=== PATIENT | male | born 1940 | race Two or more races ===

== ENCOUNTER 2024-08-14 10:27 | Emergency (ER) | payer OTHER, SELFPAY ==
--- NOTE | 2024-08-14 10:43 | EKG_ITS ---
[facility] Test Date: 2024-08-14 Pat Name: MEGAN VILLAR Department: Room: - Gender: Male Cloth Folder Hand: : 1940 Requested By: Pete Ga (RULING MACHINE SET UP OPERATOR) Order Number: [id number] Reading MD: Pete Ga (RULING MACHINE SET UP OPERATOR) Measurements Intervals [place] Rate: 62 P: 37 [place]: 209 QRS: -59 QRSD: 166 T: -4 QT: 476 QTc: 485 Interpretive Statements SINUS RHYTHM RIGHT BUNDLE BRANCH BLOCK [120+ ms QRS DURATION, UPRIGHT V1, 40+ ms S IN I/aVL/V4/V5/V6] LEFT ANTERIOR FASCICULAR BLOCK [QRS AXIS <= -45, QR IN I, RS IN II] POSSIBLE SEPTAL MYOCARDIAL INFARCTION , PROBABLY OLD [30 ms Q WAVE IN V1/V2] Compared to ECG 11/27/2022 17:02:13 Myocardial infarct finding now present Atrial fibrillation no longer present ST (T wave) deviation no longer present /store/S0/[id number].pdf
[2024-08-14 10:46] VITALS: BP 152/78; PULSE 65; RESP 18; TEMP 36.7; O2SAT 97; BMI 27.1
--- NOTE | 2024-08-14 10:54 | PD.EDRME ---
Rapid Medical Screening Exam RME Arrival date/time: 08/14/24 10:27 84-year-old male presents emerged part today stating his been feeling lightheaded since yesterday Chief Complaint: Dizziness Time Seen by Provider: 08/14/24 10:30 Vital signs: Vital Signs Temperature 98.0 F 08/14/24 10:46 Pulse Rate 65 08/14/24 10:46 Respiratory Rate 18 08/14/24 10:46 Blood Pressure 152/78 H 08/14/24 10:46 Pulse Oximetry (%) 97 08/14/24 10:46 Oxygen Delivery Method Room Air 08/14/24 10:46
--- NOTE | 2024-08-14 10:55 | XR_ITS ---
Examination: CT brain head without contrast. 2-D sagittal coronal reconstructions Date and time of exam:August 14, 2024 1106 hrs. Indications: Onset severe headaches today, patient fell May 09, 2024 with injury to the head, laceration to the right eyebrow head pain CTDI: vol (mGy):52.2 DLP: (mGycm):108 Technique: Multiple CT axial sections of the brain have been obtained, 5 mm slice thickness. Contrast has not been administered. 2-D sagittal, coronal reconstructions have been obtained Low dose protocols were performed. One or more of the following dose reduction techniques were used; automated exposure control, adjustment of the mA and/or KV according to patient size, use of iterative reconstruction technique. Findings: No significant ventricular enlargement. Intra-axial or extra-axial hemorrhage density is not seen. No mass effect or midline shift Basal cisterns are not remarkable. Fourth ventricle is midline. Cranial vault intact. Impression: Negative for acute hemorrhage, mass effect or midline shift Advise clinical correlation and follow-up accordingly
[2024-08-14 11:32] LABS: Basophils % (Auto) 1 % (0-2.5); Eosinophils # (Auto) 0.1 Thou/mm3 (0.0-0.5); Eosinophils % (Auto) 2 % (0-10); Hematocrit 42.1 % (41.0-53.0); Hemoglobin 14.6 g/dL (13.5-16.0); Immature Granulocytes % (Auto) 0 % (0-0); Immature Granulocytes Auto 0.02 Thou/mm3 (0.00-0.00); Lymphocytes # (Auto) 1.1 Thou/mm3 (1.0-4.8); Lymphocytes % (Auto) 18 % (10-50); Mean Corpuscular HGB Conc 34.7 g/dl (31.0-37.0); Mean Corpuscular Hemoglobin 31.5 pg (25.0-35.0); Mean Corpuscular Volume 91 fL (80-100); Monocytes # (Auto) 0.4 Thou/mm3 (0.0-0.8); Monocytes % (Auto) 8 % (0-12); Neutrophils # (Auto) 4.1 Thou/mm3 (1.8-7.7); Neutrophils % (Auto) 71 % (37-80); Nucleated Red Blood Cell % 0 /100 WBC (0); Platelet Count 222 Thou/mm3 (140-440); RDW Standard Deviation 45.9 fL (35.1-43.9); Red Blood Count 4.63 Miln/mm3 (4.50-5.90); White Blood Count 5.8 Thou/mm3 (3.8-10.6)
[2024-08-14 11:47] LABS: INR 1.1 (0.9-1.3); Prothrombin Time 11.9 Seconds (9.0-12.2)
[2024-08-14 11:50] LABS: B-Type Natriuretic Peptide 79 pg/mL (0-100)
[2024-08-14 11:52] LABS: Alanine Aminotransferase 16 U/L (10-49); Albumin, Serum 3.9 gm/dL (3.4-4.8); Albumin/Globulin Ratio 1.3 (1.2-2.2); Alkaline Phosphatase 82 U/L (46-116); Anion Gap 2 (7-16); Aspartate Amino Transferase 23 U/L (0-34); BUN/Creatinine Ratio 9 Ratio (12-20); Bilirubin,Total 0.5 mg/dL (0.3-1.2); Blood Urea Nitrogen 12 mg/dL (9-23); Calcium 8.7 mg/dL (8.3-10.6); Calcium (Corrected) 8.8 mg/dL (8.5-10.1); Carbon Dioxide 26.6 mMol/L (20.0-31.0); Chloride 106 mMol/L (98-107); Creatinine (Component) 1.3 mg/dL (0.6-1.3); Estimated Creatinine Clearance 41.2 mL/min (>60); Globulin 2.9 gm/dL (2.3-3.5); Glucose 111 mg/dL (74-106); Magnesium 1.8 mg/dL (1.6-2.6); Osmolality,Calculated 270 (275-295); Potassium 3.9 mMol/L (3.4-5.1); Sodium 135 mMol/L (136-145); Total Protein 6.8 gm/dL (5.7-8.2); Troponin I < 0.020 ng/mL (0.0-0.045); eGFR 55 See Note
[2024-08-14 14:21] VITALS: BP 161/81; PULSE 68; RESP 19; TEMP 36.5; O2SAT 95
[2024-08-14 15:13] LABS: Collection Type, Urine Clean Catch; Squamous Epithelial Cell,Urine 0 /hpf (0-5)
[2024-08-14 15:31] LABS: Bilirubin,Urine Negative (Negative); Blood,Urine Negative (Negative); Clarity,Urine Clear (Clear/Hazy); Color,Urine Lt-Yellow (Lt Yel-Yel); Glucose, Urine Negative (Negative); Ketones,Urine Negative (Negative); Leukocyte Esterase,Urine Negative (Negative); Nitrite,Urine Negative (Negative); PH,Urine 6.5 (5.0-7.0); Protein,Urine 1+ (Neg - Trace); RBC,Urine < 1 /hpf (0-3); Urobilinogen,Urine Negative mg/dL (0.0-1.0); WBC,Urine < 1 /hpf (0-5)
--- NOTE | 2024-08-14 16:35 | EDNOTE_ITS ---
ED Dizzyness RME/HPI General Chief Complaint: Dizziness Stated Complaint: light headed Time Seen by Provider: 08/14/24 10:30 Arrival date/time: 08/14/24 10:27 This is a 84-year-old male that comes in with complaints of feeling lightheaded. Patient states that episode lasted approximately 5 minutes and resolved on its own. Patient has had this happen before in the past and it was due to his diuretic therapy. It resolved after patient was off his diuretic therapy. Per patient family there was no real reason for him to be lightheaded. Patient has an appointment with primary provider on Friday next week. 08/16/24. Patient has a history of heart murmur, high blood pressure. RME / HPI RME / HPI Narrative: 08/14/24 10:27 84-year-old male presents emerged part today stating his been feeling lightheaded since yesterday Related Data Home Medications ?Medication ?Instructions ?Recorded ?Confirmed finasteride 5 mg tablet 5 mg PO QDAY 07/06/19 06/21/24 levothyroxine 112 mcg tablet 112 mcg PO QDAY 07/06/19 06/21/24 lisinopril 10 mg tablet 40 mg PO QDAY 07/06/19 06/21/24 latanoprost 0.005 % eye drops 1 drp Both eyes QDAY 07/17/20 06/21/24 timolol 0.5 % eye drops 1 drp Both eyes QDAY 07/17/20 06/21/24 tamsulosin 0.4 mg capsule 0.8 mg PO QHS 06/21/24 06/21/24 Previous Rx's ?Medication ?Instructions ?Recorded docusate sodium 100 mg capsule 100 mg PO BID #40 caps 08/16/22 (Colace) hydrocodone 5 mg-acetaminophen 325 1 tab PO Q6H PRN pain (scale score 08/16/22 mg tablet 7-10) #20 tabs ibuprofen 600 mg tablet 600 mg PO Q8H PRN pain (scale 08/16/22 score 4-6) #15 tabs apixaban 5 mg tablet (Eliquis) 5 mg PO BID 30 days #60 tabs 11/28/22 Allergies Allergy/AdvReac Type Severity Reaction Status Date / Time No Known Allergies Allergy Verified 06/21/24 08:27 Review of Systems Review of Systems Systems Reviewed: All systems reviewed, normal except as documented Past Medical History Past Medical History NEUROLOGIC: Negative Neurological Disorders or Seizures CARDIAC: Positive Cardiac Disorders, Heart Murmur, Hypertension and Varicose Veins; Negative Congestive Heart Failure or Edema RESPIRATORY: Negative Chronic Obstructive Pulmonary Disease (COPD) GASTROINTESTINAL: Negative Gastrointestinal Disorders or Hepatitis GENITOURINARY: Positive Genitourinary Disorders and Benign Prostatic Hyperplasia; Negative Renal Disease MUSCULOSKELETAL: Negative Musculoskeletal Disorders ENT: Positive Cataracts and Glaucoma ENDOCRINE: Positive Endocrine Disorders and Hypothyroidism; Negative Diabetes Mellitus Type 1 or Diabetes Mellitus Type 2 HEMATOLOGIC: Negative Blood Disorders OTHER HISTORY: Positive Radiation Therapy, Chicken Pox, Measles and Mumps; Negative Autoimmune Disease, Blood Transfusions, Blood Transfusion Reaction, Anesthesia Reactions, Organ Transplant, MRSA or Vancomycin-Resistant Enterococci Family History FAMILY HISTORY: Negative Family Psychiatric Problems, Family Respiratory Disorders, Family Cardiac Disorders, Family Gastrointestinal Problems, Family Cancer, Family Surgery or Family Anesthesia Reaction Surgical History SURGICAL: Positive Vascular Surgery, Tonsillectomy, Throat Surgery and Abdominal Surgery; Negative Ear Surgery, Joint Replacement, Vasectomy or Organ Transplant Social History SMOKING STATUS: Never smoker ED Exam General General appearance: Present alert and in no apparent distress Head Head exam: Present atraumatic Eye Eye exam: Present normal appearance, PERRL and EOMI ENT ENT exam: Present normal exam, normal oropharynx and mucous membranes moist Neck Neck exam: Present normal inspection, full ROM and trachea midline Chest Chest inspection: Present normal inspection and symmetric chest wall rise Respiratory Respiratory exam: Present normal lung sounds bilaterally Cardiovascular Cardiovascular exam: Present regular rate, normal rhythm and normal heart sounds Abdominal Exam Abdominal exam: Present soft and other (nontender to palpation ) Extremities Exam Extremities exam: Present normal inspection and full ROM Back Exam Back exam: Present normal inspection and full ROM Neurological Exam Neurological exam: Present alert, oriented X3 and CN II-XII intact Psychiatric Psychiatric exam: Present normal affect and normal mood Skin Skin exam: Present warm, dry, intact and normal color Course Quality Measures none Orders Category Date Time Status EKG (ED ONLY) *Do not use* NOW Care 08/14/24 10:[address] head/brain wo con Stat Exams 08/14/24 10:55 Completed EKG (ED Only) Stat Exams 08/14/24 10:43 Draft B-Type Natriuretic Peptide Stat Lab 08/14/24 11:16 Completed CBC Stat Lab 08/14/24 11:16 Completed Comprehensive Metabolic Panel Stat Lab 08/14/24 11:16 Completed Magnesium Stat Lab 08/14/24 11:16 Completed Partial Thromboplastin Time Stat Lab 08/14/24 11:16 Completed Prothrombin Time with INR Stat Lab 08/14/24 11:16 Completed Troponin I Stat Lab 08/14/24 11:16 Completed Urinalysis Stat Lab 08/14/24 14:20 Completed Vital Signs Vital signs: Vital Signs Temperature 98.0 F 08/14/24 10:46 Pulse Rate 65 08/14/24 10:46 Respiratory Rate 18 08/14/24 10:46 Blood Pressure 152/78 H 08/14/24 10:46 Pulse Oximetry (%) 97 08/14/24 10:46 Oxygen Delivery Method Room Air 08/14/24 10:46 Procedures -ED EKG Interpretation #1: Date of EK08/14/24 Time of EK:49 Rate: 62 Interpretation: Interpreted by me (sinus rhythm with right bundle branch block, left anterior fasicular block) EKG Impression: No ectopy and Normal intervals Dizziness MDM Narrative MDM Narrative:: This is a 84-year-old male that comes in with complaints of feeling lightheaded. Patient states that episode lasted approximately 5 minutes and resolved on its own. Patient has had this happen before in the past and it was due to his diuretic therapy. It resolved after patient was off his diuretic therapy. Per patient family there was no real reason for him to be lightheaded. Patient has an appointment with primary provider on Friday next week. 08/16/24. Patient has a history of heart murmur, high blood pressure. Labs unremarkable. CT head negative. Pt reports feeling better and feels comfortable going home at this time. Pt will keep scheduled appointment with [facility] provider. CT head: Findings: No significant ventricular enlargement. Intra-axial or extra-axial hemorrhage density is not seen. No mass effect or midline shift Basal cisterns are not remarkable. Fourth ventricle is midline. Cranial vault intact. Impression: Negative for acute hemorrhage, mass effect or midline shift Advise clinical correlation and follow-up accordingly Patient data External records reviewed:: [facility] previous records Clinical information provided by:: patient Social determinants that could affect healthcare access:: none Patient has the following chronic illnesses:: see note How is presenting disease/condition affected by chronic disease/condition?: uneffected by Evaluation data The following diagnostics were reviewed and interpreted by me:: lab results, radiology exam(s) and EKG tracing(s) Lab and/or radiology exams considered but not ordered:: none Interpretation Summary: see note Medications / Prescriptions Medications or Prescriptions considered but not ordered:: none Medication administrations:: none Consultations Consultation(s) initiated? (list below): No Diagnosis Most likely diagnosis given after review of the tests above:: dizziness Admission Indicated Admission indicated?: not indicated Admission Request Was there a request for admission?: No Disposition Plan Disposition Plan: Discharge Discharge Attestation Discharge Attestation: The patient and all family members were given an opportunity to ask questions and understood the discharge instructions. Discharge instructions specifically effects, indications for sooner follow up or return to the emergency department, and the expected course of current diagnosis. Patient condition: Stable Discharge Plan Plan Patient Disposition: HOME (Self Care) Patient condition on transfer: Stable Prescriptions/Referrals Prescriptions/Med Rec: No Action tamsulosin 0.4 mg capsule 0.8 mg PO QHS timolol 0.5 % drops 1 drp Both eyes QDAY latanoprost 0.005 % drops 1 drp Both eyes QDAY lisinopril 10 mg Tablet 40 mg PO QDAY finasteride 5 mg Tablet 5 mg PO QDAY levothyroxine 112 mcg Tablet 112 mcg PO QDAY hydrocodone-acetaminophen 5-325 mg tablet 1 tab PO Q6H MDD 4 PRN (Reason: pain (scale score 7-10)) Qty: 20 0RF docusate sodium [Colace] 100 mg capsule 100 mg PO BID Qty: 40 0RF ibuprofen 600 mg tablet 600 mg PO Q8H PRN (Reason: pain (scale score 4-6)) Qty: 15 0RF Eliquis 5 mg tablet 5 mg PO BID 30 Days Qty: 60 1RF Referrals: Mat Dean MD [Primary Care Provider] - In 1 week Problem List Clinical Impression: Dizziness Patient/Caregiver Discharge Instructions Discharge Activity: activity as tolerated Education Materials: ED Dizziness, Uncertain Cause Additional Instructions: Follow up with primary provider in 1-2 days. Come back to ED if symptoms change or worsen keep scheduled appointment with primary provider. Please make an appointment with pharmacovigilance specialist as soon as possible. Print Language: Ukrainian Stand Alone Forms: Lashanda Award Info., Patient Portal Info Letter Attestation Attestation The patient was seen by the midlevel practitioner. I, the co-signing physician, was present during the entire ER visit. While I did not physically examine the patient, I was available for consultation as needed.
== END 2024-08-14 17:06 | disposition home or self-care (01) ==
PROVIDERS: Nurse Practitioner Primary Care; Emergency Provider Emergency Medicine; PCP Family Medicine
DX: R42 Dizziness and giddiness (principal); I45.10 Unspecified right bundle-branch block; I44.4 Left anterior fascicular block
CPT/HCPCS: 36415; 70450; 80053; 81001; 83735; 83880; 84484; 85025; 85610; 85730; 93005; 99284

== ENCOUNTER → 2024-10-01 | Outpatient (CLI) | payer OTHER, SELFPAY ==
[2024-10-01 08:49] LABS: Glucose Estimated Average 105 mg/dL (80-131); Hemoglobin A1C 5.3 % Hgb (4.8-6.0)
[2024-10-01 09:05] LABS: Prostate Specific Antigen 0.69 ng/mL (0-4.00)
[2024-10-01 09:06] LABS: Vitamin B12 305 pg/mL (211-911)
[2024-10-01 09:14] LABS: Alanine Aminotransferase 26 U/L (10-49); Albumin/Globulin Ratio 1.4 (1.2-2.2); Alkaline Phosphatase 80 U/L (46-116); Anion Gap 7 (7-16); Aspartate Amino Transferase 33 U/L (0-34); BUN/Creatinine Ratio 9 Ratio (12-20); Bilirubin,Total 0.4 mg/dL (0.3-1.2); Blood Urea Nitrogen 11 mg/dL (9-23); Calcium 8.6 mg/dL (8.3-10.6); Calcium (Corrected) 8.6 mg/dL (8.5-10.1); Carbon Dioxide 27.6 mMol/L (20.0-31.0); Cardiac Risk Estimate 4.5 RATIO (4.0-6.7); Chloride 105 mMol/L (98-107); Cholesterol 166 mg/dL (132-200); Creatinine (Component) 1.2 mg/dL (0.6-1.3); Free T4 (Free Thyroxine) 1.49 ng/dL (0.89-1.76); Globulin 2.8 gm/dL (2.3-3.5); Glucose 103 mg/dL (74-106); HDL Cholesterol 37 mg/dL (40-60); LDL Cholesterol,Calculated 109 mg/dL (0-130); Osmolality,Calculated 278 (275-295); Potassium 3.9 mMol/L (3.4-5.1); Sodium 140 mMol/L (136-145); Total Protein 6.8 gm/dL (5.7-8.2); Triglycerides 100 mg/dL (30-150); eGFR > 60 See Note
== END | disposition home or self-care (01) ==
LOC: COPL 06:56
PROVIDERS: PCP Family Medicine; Referring Provider Nurse Practitioner Family; Visit Provider Nurse Practitioner Family
DX: Z00.01 Encounter for general adult medical examination with abnormal findings (principal); E03.9 Hypothyroidism, unspecified; I10 Essential (primary) hypertension
CPT/HCPCS: 36415; 80053; 80061; 82306; 82607; 83036; 84153; 84439; 84443

== ENCOUNTER 2024-11-13 12:42 | Emergency (ER) | payer OTHER, SELFPAY ==
[2024-11-13 12:43] VITALS: BMI 26.6
[2024-11-13 12:55] VITALS: BP 174/79; PULSE 67; RESP 16; TEMP 36.7; O2SAT 97
--- NOTE | 2024-11-13 13:25 | XR_ITS ---
Examination: PA chest single view Technique: Upright PA chest single view Exam date and time: November 13, 2024 1346 hrs. Comparison July 15, 2017 Indications: Dizziness and syncopal episodes today. Findings: Minor atelectasis in both lung flores Normal heart size Suspicious for mild pneumonia left base obscuring detail medial portion left hemidiaphragm Impression: Suspicious for mild pneumonia left base
--- NOTE | 2024-11-13 13:25 | XR_ITS ---
Examination: CT brain head without contrast. 2-D sagittal coronal reconstructions Date and time of exam:November 13, 2024 at 1412 hrs. Indications: Syncopal episodes today Comparison: August 14, 2024 CTDI: vol (mGy):56 DLP: (mGycm):1157 Technique: Multiple CT axial sections of the brain have been obtained, 5 mm slice thickness. Contrast has not been administered. 2-D sagittal, coronal reconstructions have been obtained Low dose protocols were performed. One or more of the following dose reduction techniques were used; automated exposure control, adjustment of the mA and/or KV according to patient size, use of iterative reconstruction technique. Findings: No significant ventricular enlargement. Intra-axial or extra-axial hemorrhage density is not seen. No mass effect or midline shift Basal cisterns are not remarkable. Fourth ventricle is midline. Cranial vault intact. Impression: Negative for acute hemorrhage, mass effect or midline shift
--- NOTE | 2024-11-13 13:25 | EKG_ITS ---
[facility] Test Date: 2024-11-13 Pat Name: MEGAN VILLAR Department: Room: - Gender: Male Seam Stayer: : 1940 Requested By: Halie Bui Order Number: [id number] Reading MD: Halie Bui Measurements Intervals [place] Rate: 61 P: 34 ME: 213 QRS: -52 QRSD: 158 T: -14 QT: 481 QTc: 487 Interpretive Statements SINUS RHYTHM WITH FIRST DEGREE AV BLOCK MARKED LEFT AXIS DEVIATION [QRS AXIS < -30] RIGHT BUNDLE BRANCH BLOCK [120+ ms QRS DURATION, UPRIGHT V1, 40+ ms S IN I/aVL/V4/V5/V6] PROBABLE SEPTAL MYOCARDIAL INFARCTION , PROBABLY OLD [35 ms Q WAVE IN V1/V2] Compared to ECG 08/14/2024 10:49:54 First degree AV block now present Left-axis deviation now present Left anterior fascicular block no longer present Myocardial infarct finding still present /store/S0/[id number].pdf
--- NOTE | 2024-11-13 13:26 | PD.EDRME ---
Rapid Medical Screening Exam E Arrival date/time: 11/13/24 12:42 This is an 84-year-old male that comes in with complaints of syncope. Patient states that he was washing his grandson shoes because I had met on him per patient and he knows he was bent over slightly. Patient states he woke up on the grass and does not remember what happened. This was unwitnessed. Patient does not remember passing out. Patient reports feeling weak. Patient has a history of atrial fibrillation, hypothyroidism, and high blood pressure. Patient denies fever, nausea, vomiting, diarrhea. I have greeted and performed a focused initial assessment of this patient. Initial appropriate labs ordered at this time. A comprehensive ED assessment and evaluation of the patient and analysis of all test and completion of medical decision making process will be conducted by additional ED provider. Chief Complaint: Syncope / Near Syncope Time Seen by Provider: 11/13/24 12:56 Vital signs: Vital Signs Temperature 98.0 F 11/13/24 12:55 Pulse Rate 67 11/13/24 12:55 Respiratory Rate 16 11/13/24 12:55 Blood Pressure 174/79 H 11/13/24 12:55 Pulse Oximetry (%) 97 11/13/24 12:55 Oxygen Delivery Method Room Air 11/13/24 12:55
[2024-11-13 14:04] LABS: Basophils % (Auto) 1 % (0-2.5); Eosinophils # (Auto) 0.2 Thou/mm3 (0.0-0.5); Eosinophils % (Auto) 4 % (0-10); Hematocrit 43.2 % (41.0-53.0); Hemoglobin 14.6 g/dL (13.5-16.0); Immature Granulocytes % (Auto) 0 % (0-0); Immature Granulocytes Auto 0.02 Thou/mm3 (0.00-0.00); Lymphocytes # (Auto) 1.5 Thou/mm3 (1.0-4.8); Lymphocytes % (Auto) 28 % (10-50); Mean Corpuscular HGB Conc 33.8 g/dl (31.0-37.0); Mean Corpuscular Hemoglobin 30.4 pg (25.0-35.0); Mean Corpuscular Volume 90 fL (80-100); Monocytes # (Auto) 0.5 Thou/mm3 (0.0-0.8); Monocytes % (Auto) 9 % (0-12); Neutrophils # (Auto) 3.2 Thou/mm3 (1.8-7.7); Neutrophils % (Auto) 59 % (37-80); Nucleated Red Blood Cell % 0 /100 WBC (0); Platelet Count 228 Thou/mm3 (140-440); RDW Standard Deviation 45.1 fL (35.1-43.9); Red Blood Count 4.81 Miln/mm3 (4.50-5.90); White Blood Count 5.5 Thou/mm3 (3.8-10.6)
[2024-11-13 14:24] LABS: B-Type Natriuretic Peptide 102 pg/mL (0-100)
[2024-11-13 14:25] LABS: Alanine Aminotransferase 24 U/L (10-49); Albumin, Serum 4.3 gm/dL (3.4-4.8); Albumin/Globulin Ratio 1.4 (1.2-2.2); Alkaline Phosphatase 103 U/L (46-116); Anion Gap 7 (7-16); Aspartate Amino Transferase 25 U/L (0-34); BUN/Creatinine Ratio 13 Ratio (12-20); Bilirubin,Total 0.4 mg/dL (0.3-1.2); Blood Urea Nitrogen 15 mg/dL (9-23); Calcium 9.1 mg/dL (8.3-10.6); Calcium (Corrected) 9.1 mg/dL (8.5-10.1); Carbon Dioxide 26.4 mMol/L (20.0-31.0); Chloride 107 mMol/L (98-107); Creatinine (Component) 1.2 mg/dL (0.6-1.3); Estimated Creatinine Clearance 42.8 mL/min (>60); Glucose 104 mg/dL (74-106); Osmolality,Calculated 280 (275-295); Sodium 140 mMol/L (136-145); Total Protein 7.3 gm/dL (5.7-8.2); Troponin I < 0.020 ng/mL (0.0-0.045); eGFR > 60 See Note
[2024-11-13 14:37] LABS: Prothrombin Time 11.3 Seconds (9.0-12.2)
--- NOTE | 2024-11-13 14:50 | PD.EDSYNC ---
ED Syncope RME/HPI General Chief Complaint: Syncope / Near Syncope Stated Complaint: SENT FOR HEAD CT BY CLINIC Time Seen by Provider: 11/13/24 12:56 Arrival date/time: 11/13/24 12:42 RME / HPI RME / HPI narrative: 11/13/24 12:42 This is an 84-year-old male that comes in with complaints of syncope. Patient states that he was washing his grandson shoes because I had met on him per patient and he knows he was bent over slightly. Patient states he woke up on the grass and does not remember what happened. This was unwitnessed. Patient does not remember passing out. Patient reports feeling weak. Patient has a history of atrial fibrillation, hypothyroidism, and high blood pressure. Patient denies fever, nausea, vomiting, diarrhea. I have greeted and performed a focused initial assessment of this patient. Initial appropriate labs ordered at this time. A comprehensive ED assessment and evaluation of the patient and analysis of all test and completion of medical decision making process will be conducted by additional ED provider. DR. DANE GRANADOS ED EVALUATION: 84 year old male presents to the Emergency Department sent by his PCP for a CT scan of his brain. Patient had complaints of a syncope, while he was washing his grandson's shoes. He states he was bending over for like 10 minutes getting mud off the shoes and then he passed out and only remembers waking up lying on grass. PCP sent him over for a CT scan since he is on Eliquis. No nausea, vomiting, or diarrhea. No cough, no fevers, no chills. No neck pain, no headache. Related Data Home Medications ?Medication ?Instructions ?Recorded ?Confirmed finasteride 5 mg tablet 5 mg PO QDAY 07/06/19 06/21/24 levothyroxine 112 mcg tablet 112 mcg PO QDAY 07/06/19 06/21/24 lisinopril 10 mg tablet 40 mg PO QDAY 07/06/19 06/21/24 latanoprost 0.005 % eye drops 1 drp Both eyes QDAY 07/17/20 06/21/24 timolol 0.5 % eye drops 1 drp Both eyes QDAY 07/17/20 06/21/24 tamsulosin 0.4 mg capsule 0.8 mg PO QHS 06/21/24 06/21/24 Previous Rx's ?Medication ?Instructions ?Recorded docusate sodium 100 mg capsule 100 mg PO BID #40 caps 08/16/22 (Colace) hydrocodone 5 mg-acetaminophen 325 1 tab PO Q6H PRN pain (scale score 08/16/22 mg tablet 7-10) #20 tabs ibuprofen 600 mg tablet 600 mg PO Q8H PRN pain (scale 08/16/22 score 4-6) #15 tabs apixaban 5 mg tablet (Eliquis) 5 mg PO BID 30 days #60 tabs 11/28/22 Allergies Allergy/AdvReac Type Severity Reaction Status Date / Time No Known Allergies Allergy Verified 11/13/24 12:45 Review of Systems Review of Systems Systems Reviewed: All systems reviewed, normal except as documented Narrative Review of Systems: GEN: No fever, no chills, no weight loss EYES: No discharge, no visual changes, no pain HEENT: No ear pain, no congestion, no sore throat PULM: No shortness of breath, no cough, no congestion CV: No chest pain, no dyspnea on exertion, no palpitations GI: No nausea, no vomiting, no diarrhea, no pain, no constipation : No frequency, no urgency and no dysuria MUSC/SKEL: No joint pain, no back pain SKIN: No rash PSYCH: No hallucinations, no depression HEME/LYMPH: No easy bleeding or bruising tendencies NEURO: No weakness, no headache, + syncope Past Medical History Past Medical History NEUROLOGIC: Negative Neurological Disorders or Seizures CARDIAC: Positive Cardiac Disorders, Heart Murmur, Hypertension and Varicose Veins; Negative Congestive Heart Failure or Edema RESPIRATORY: Negative Chronic Obstructive Pulmonary Disease (COPD) GASTROINTESTINAL: Negative Gastrointestinal Disorders or Hepatitis GENITOURINARY: Positive Genitourinary Disorders and Benign Prostatic Hyperplasia; Negative Renal Disease MUSCULOSKELETAL: Negative Musculoskeletal Disorders ENT: Positive Cataracts and Glaucoma ENDOCRINE: Positive Endocrine Disorders and Hypothyroidism; Negative Diabetes Mellitus Type 1 or Diabetes Mellitus Type 2 HEMATOLOGIC: Negative Blood Disorders OTHER HISTORY: Positive Radiation Therapy, Chicken Pox, Measles and Mumps; Negative Autoimmune Disease, Blood Transfusions, Blood Transfusion Reaction, Anesthesia Reactions, Organ Transplant, MRSA or Vancomycin-Resistant Enterococci Family History FAMILY HISTORY: Negative Family Psychiatric Problems, Family Respiratory Disorders, Family Cardiac Disorders, Family Gastrointestinal Problems, Family Cancer, Family Surgery or Family Anesthesia Reaction Surgical History SURGICAL: Positive Vascular Surgery, Tonsillectomy, Throat Surgery and Abdominal Surgery; Negative Ear Surgery, Joint Replacement, Vasectomy or Organ Transplant Social History SMOKING STATUS: Never smoker SUBSTANCE USE: does not use ALCOHOL: Never ED Exam Narrative Physical exam: GENERAL APPEARANCE: Well hydrated, well nourished, in no acute distress. Talking and walking normally, no complaints. VITALS: All vitals were reviewed and the pulse ox is 97% on room air which is normal according to my interpretation. HEENT: Normocephalic, atramatic, EOMI, EACs are patent. There is no bulge or retraction. Throat without erythema or exudate. Moist oromucosa. No jaundice NECK: Supple, no JVD or bruits. CARDIOVASCULAR: Heart regular without S3-S4 or murmur. No rubs or gallops. LUNGS/CHEST: Clear to auscultation bilaterally. No rales, rhonchi, or wheezing. Normal inspection. ABDOMEN: Soft, nontender, with normal bowel sounds. No pulsatile masses. No rebound, rigidity, or guarding. No incarcerated hernia. Normal inspection and palpation. EXTREMITIES: No edema, clubbing, or cyanosis. Intact CSM. Normal inspection and palpation. SKIN: Warm and dry without rashes. Normal inspection. MUSCULOSKELETAL: No gross deformity, full ROM all extremities. Normal inspection. NEURO: Alert and oriented x3. Cranial nerves II through XII grossly intact. There are no other motor or sensory deficits noted. Normal gait. PSYCHIATRIC: Normal mood and affect. No psychosis. Course Quality Measures none Orders Category Date Time Status EKG (ED ONLY) *Do not use* NOW Care 11/13/24 13:[address] head/brain wo con Stat Exams 11/13/24 13:25 Completed EKG (ED Only) Stat Exams 11/13/24 13:25 Draft XR chest 1V Stat Exams 11/13/24 13:25 Completed BNP [B-Type Natriuretic Peptide] Stat Lab 11/13/24 13:58 Completed CBC Stat Lab 11/13/24 13:58 Completed Comprehensive Metabolic Panel Stat Lab 11/13/24 13:58 Completed PT [Prothrombin Time with INR] Stat Lab 11/13/24 13:58 Completed Troponin I Stat Lab 11/13/24 13:58 Completed Vital Signs Vital signs: Vital Signs Temperature 98.0 F 11/13/24 12:55 Pulse Rate 67 11/13/24 12:55 Respiratory Rate 16 11/13/24 12:55 Blood Pressure 174/79 H 11/13/24 12:55 Pulse Oximetry (%) 97 11/13/24 12:55 Oxygen Delivery Method Room Air 11/13/24 12:55 Syncope [facility] Narrative [facility] Narrative:: I, Carmen Rowell, am scribing for and in the presence of Dr. Fisher. CBC is negative. CMP negative. Troponin negative. BNP negative. Pro time is negative. CT head was reviewed by and interpreted by me as follow: No bleed. No mass. No shift. No swelling. Normal ventricle. Normal bones. Twelve-lead EKG that was done at 1333 interpreted by me: Sinus rhythm. Heart rate of 61. Left axis deviation. Right bundle branch block. No ST elevation or depression. No PVC. No STEMI. Regular rate and rhythm. No change from previous EKG on record. Chest x-ray interpreted by me: Clear lungs. Heart normal. Mediastinum normal. Normal bones. Patient is walking talking. No pain complaint. Full range of motion of the neck. No sign of head trauma. Hips are fine. Patient data External records reviewed:: [facility] previous records (Reviewed last ED visit dated 08/14/24 discharged with the following: Dizziness) Clinical information provided by:: patient Social determinants that could affect healthcare access:: none Patient has the following chronic illnesses:: Atrial fibrillation with Eliquis, hypertension, hypothyroidism How is presenting disease/condition affected by chronic disease/condition?: exacerbated by Evaluation data The following diagnostics were reviewed and interpreted by me:: lab results, radiology exam(s) and EKG tracing(s) Lab and/or radiology exams considered but not ordered:: none Interpretation Summary: See above under MDM narrative. RADIOLOGY Procedure(s): XR chest 1V Accession Number(s): [id number] cc: Mat Dean MD; Zak Hagan MD; Halie Bui NP~ Examination: PA chest single view Technique: Upright PA chest single view Exam date and time: November 13, 2024 1346 hrs. Comparison July 15, 2017 Indications: Dizziness and syncopal episodes today. Findings: Minor atelectasis in both lung flores Normal heart size Suspicious for mild pneumonia left base obscuring detail medial portion left hemidiaphragm Impression: Suspicious for mild pneumonia left base Dictated By: Zak Hagan MD Procedure(s): CT head/brain wo [facility] Accession Number(s): [id number] cc: Mat Dean MD; Zak Hagan MD; Halie Bui NP~ Examination: CT brain head without contrast. 2-D sagittal coronal reconstructions Date and time of exam:November 13, 2024 at 1412 hrs. Indications: Syncopal episodes today Comparison: August 14, 2024 CTDI: vol (mGy):56 DLP: (mGycm):1157 Technique: Multiple CT axial sections of the brain have been obtained, 5 mm slice thickness. Contrast has not been administered. 2-D sagittal, coronal reconstructions have been obtained Low dose protocols were performed. One or more of the following dose reduction techniques were used; automated exposure control, adjustment of the mA and/or KV according to patient size, use of iterative reconstruction technique. Findings: No significant ventricular enlargement. Intra-axial or extra-axial hemorrhage density is not seen. No mass effect or midline shift Basal cisterns are not remarkable. Fourth ventricle is midline. Cranial vault intact. Impression: Negative for acute hemorrhage, mass effect or midline shift Dictated By: Zak Hagan MD Medications / Prescriptions Medications or Prescriptions considered but not ordered:: none Medication administrations:: see above if any Consultations Consultation(s) initiated? (list below): No Diagnosis Syncope Differential Diagnosis: vasovagal syncope, subarachnoid hemorrhage and dehydration Most likely diagnosis given after review of the tests above:: Vasovagal syncope Admission Indicated Admission indicated?: not indicated Admission Request Was there a request for admission?: No Disposition Plan Disposition Plan: Discharge Discharge Attestation Discharge Attestation: The patient and all family members were given an opportunity to ask questions and understood the discharge instructions. Discharge instructions specifically effects, indications for sooner follow up or return to the emergency department, and the expected course of current diagnosis. Patient condition: Stable Discharge Plan Plan Patient Disposition: HOME (Self Care) Disposition Comment: Stable and improved Prescriptions/Referrals Prescriptions/Med Rec: No Action tamsulosin 0.4 mg capsule 0.8 mg PO QHS timolol 0.5 % drops 1 drp Both eyes QDAY latanoprost 0.005 % drops 1 drp Both eyes QDAY lisinopril 10 mg Tablet 40 mg PO QDAY finasteride 5 mg Tablet 5 mg PO QDAY levothyroxine 112 mcg Tablet 112 mcg PO QDAY hydrocodone-acetaminophen 5-325 mg tablet 1 tab PO Q6H MDD 4 PRN (Reason: pain (scale score 7-10)) Qty: 20 0RF docusate sodium [Colace] 100 mg capsule 100 mg PO BID Qty: 40 0RF ibuprofen 600 mg tablet 600 mg PO Q8H PRN (Reason: pain (scale score 4-6)) Qty: 15 0RF Eliquis 5 mg tablet 5 mg PO BID 30 Days Qty: 60 1RF Referrals: Mat Dean MD [Primary Care Provider] - In 1 week Problem List Clinical Impression: Vasovagal syncope Patient/Caregiver Discharge Instructions Education Materials: ED Fainting, Vagal Reaction Additional Instructions: Do not bend down and stand up so quickly. Rest. Follow-up with medical doctor in a week. Return to the emergency department if any problem otherwise see your doctor for recheck and further care. Print Language: Estonian Stand Alone Forms: [employer]ash[employer] Award Info., Patient Portal Info Letter
== END 2024-11-13 16:17 | disposition home or self-care (01) ==
PROVIDERS: Nurse Practitioner Family; Emergency Provider Emergency Medicine; PCP Family Medicine
DX: R55 Syncope and collapse (principal); I45.10 Unspecified right bundle-branch block; I10 Essential (primary) hypertension; E03.9 Hypothyroidism, unspecified; I48.91 Unspecified atrial fibrillation; Z79.01 Long term (current) use of anticoagulants
CPT/HCPCS: 36415; 70450; 71045; 80053; 83880; 84484; 85025; 85610; 93005; 99284

== ENCOUNTER → 2024-12-20 | Outpatient (BNVA) | payer OTHER, SELFPAY | END | disposition home or self-care (01) | PROVIDERS: PCP Family Medicine; Referring Provider Family Medicine; Visit Provider Urology | DX: N40.1 Benign prostatic hyperplasia with lower urinary tract symptoms (principal); N13.8 Other obstructive and reflux uropathy; N32.81 Overactive bladder; I10 Essential (primary) hypertension; E03.9 Hypothyroidism, unspecified | CPT/HCPCS: 81003; 99212; G0463 ==

== ENCOUNTER 2024-12-30 14:40 | Emergency (ER) | payer OTHER, SELFPAY ==
[2024-12-30 14:43] VITALS: BMI 27.1
[2024-12-30 15:19] VITALS: BP 146/87; PULSE 74; RESP 18; TEMP 36.9; O2SAT 99
--- NOTE | 2024-12-30 15:25 | XR_ITS ---
Examination: PA chest single view TECHNIQUE: Upright PA chest single view Exam date and time: December 30, 2024 1642 hours INDICATIONS: Chest pain today FINDINGS: Suspicious for early bilateral perihilar bibasilar pneumonia Nodule left lower lung zone which may represent nipple shadow Normal heart size IMPRESSION: Early bilateral perihilar bibasilar pneumonia
--- NOTE | 2024-12-30 15:25 | EKG_ITS ---
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[id number] Requested By: Sapna Enciso ([facility]) Nathen Order Number: [id number] Reading MD: Sapna Enciso ([facility]) Nathen Measurements Intervals [place] Rate: 70 P: 42 WA: 192 QRS: -64 QRSD: 156 T: 10 QT: 458 QTc: 494 Interpretive Statements SINUS RHYTHM RIGHT BUNDLE BRANCH BLOCK [120+ ms QRS DURATION, UPRIGHT V1, 40+ ms S IN I/aVL/V4/V5/V6] LEFT ANTERIOR FASCICULAR BLOCK [QRS AXIS <= -45, QR IN I, RS IN II] Compared to ECG 11/13/2024 13:33:28 Left anterior fascicular block now present First degree AV block no longer present Left-axis deviation no longer present Myocardial infarct finding no longer present /store/S0/[id number]/ecg/[id number].pdf
--- NOTE | 2024-12-30 15:28 | PD.EDRME ---
Rapid Medical Screening Exam RME Arrival date/time: 12/30/24 14:40 This is a 84-year-old female presents to the emergency department with complaints of chest pain that began yesterday. I have greeted and performed a focused initial assessment of this patient. Initial appropriate labs ordered at this time. A comprehensive ED assessment and evaluation of the patient and analysis of all test and completion of medical decision making process will be conducted by additional ED provider. Chief Complaint: General Adult/Misc Complain Time Seen by Provider: 12/30/24 15:13 Vital signs: Vital Signs Temperature 98.5 F 12/30/24 15:19 Pulse Rate 74 12/30/24 15:19 Respiratory Rate 18 12/30/24 15:19 Blood Pressure 146/87 H 12/30/24 15:19 Pulse Oximetry (%) 99 12/30/24 15:19 Oxygen Delivery Method Room Air 12/30/24 15:19
[2024-12-30 15:47] LABS: Basophils % (Auto) 0 % (0-2.5); Eosinophils # (Auto) 0.1 Thou/mm3 (0.0-0.5); Eosinophils % (Auto) 2 % (0-10); Hematocrit 43.3 % (41.0-53.0); Hemoglobin 14.6 g/dL (13.5-16.0); Immature Granulocytes % (Auto) 0 % (0-0); Immature Granulocytes Auto 0.02 Thou/mm3 (0.00-0.00); Lymphocytes # (Auto) 1.4 Thou/mm3 (1.0-4.8); Lymphocytes % (Auto) 23 % (10-50); Mean Corpuscular HGB Conc 33.7 g/dl (31.0-37.0); Mean Corpuscular Hemoglobin 30.1 pg (25.0-35.0); Mean Corpuscular Volume 89 fL (80-100); Monocytes # (Auto) 0.6 Thou/mm3 (0.0-0.8); Monocytes % (Auto) 11 % (0-12); Neutrophils # (Auto) 3.8 Thou/mm3 (1.8-7.7); Neutrophils % (Auto) 64 % (37-80); Nucleated Red Blood Cell % 0 /100 WBC (0); Platelet Count 210 Thou/mm3 (140-440); RDW Standard Deviation 45.4 fL (35.1-43.9); Red Blood Count 4.85 Miln/mm3 (4.50-5.90); White Blood Count 5.9 Thou/mm3 (3.8-10.6)
[2024-12-30 15:59] LABS: B-Type Natriuretic Peptide 133 pg/mL (0-100)
[2024-12-30 16:00] LABS: Alanine Aminotransferase 21 U/L (10-49); Albumin/Globulin Ratio 1.3 (1.2-2.2); Alkaline Phosphatase 89 U/L (46-116); Anion Gap 7 (7-16); Aspartate Amino Transferase 24 U/L (0-34); BUN/Creatinine Ratio 12 Ratio (12-20); Bilirubin,Total 0.5 mg/dL (0.3-1.2); Blood Urea Nitrogen 15 mg/dL (9-23); Calcium 8.7 mg/dL (8.3-10.6); Calcium (Corrected) 8.7 mg/dL (8.5-10.1); Carbon Dioxide 26.8 mMol/L (20.0-31.0); Chloride 105 mMol/L (98-107); Creatinine (Component) 1.3 mg/dL (0.6-1.3); Estimated Creatinine Clearance 39.5 mL/min (>60); Glucose 94 mg/dL (74-106); Lipase 32 U/L (12-53); Magnesium 1.7 mg/dL (1.6-2.6); Osmolality,Calculated 278 (275-295); Potassium 4.1 mMol/L (3.4-5.1); Sodium 139 mMol/L (136-145); Troponin I < 0.020 ng/mL (0.0-0.045); eGFR 55 See Note
[2024-12-30 16:09] LABS: INR 1.1 (0.9-1.3); Partial Thromboplastin Time 32.9 Seconds (22.0-36.0); Prothrombin Time 11.9 Seconds (9.0-12.2)
[2024-12-30 19:54] LABS: Troponin I < 0.020 ng/mL (0.0-0.045)
--- NOTE | 2024-12-30 19:58 | PD.EDADULT ---
ED General RME/HPI General Chief complaint: General Adult/Misc Complain Stated complaint: SENT BY PCP FOR HIGH BP AND ABDNORMAL EKG Time Seen by Provider: 12/30/24 15:13 Arrival date/time: 12/30/24 14:40 84-year-old male with history of acid reflux and heartburn presents to the emergency department today stating that yesterday he had an episode of heartburn reports that he felt that it was heartburn and went to his primary care doctor today they did an EKG which she reports is abnormal therefore they referred to the ER for further evaluation Limitations: no limitations RME / HPI RME / HPI narrative: 12/30/24 14:40 This is a 84-year-old female presents to the emergency department with complaints of chest pain that began yesterday. I have greeted and performed a focused initial assessment of this patient. Initial appropriate labs ordered at this time. A comprehensive ED assessment and evaluation of the patient and analysis of all test and completion of medical decision making process will be conducted by additional ED provider. Related Data Home Medications ?Medication ?Instructions ?Recorded ?Confirmed finasteride 5 mg tablet 5 mg PO QDAY 07/06/19 12/20/24 levothyroxine 112 mcg tablet 112 mcg PO QDAY 07/06/19 12/20/24 lisinopril 10 mg tablet 40 mg PO QDAY 07/06/19 12/20/24 latanoprost 0.005 % eye drops 1 drp Both eyes QDAY 07/17/20 12/20/24 timolol 0.5 % eye drops 1 drp Both eyes QDAY 07/17/20 12/20/24 tamsulosin 0.4 mg capsule 0.8 mg PO QHS 06/21/24 12/20/24 Previous Rx's ?Medication ?Instructions ?Recorded docusate sodium 100 mg capsule 100 mg PO BID #40 caps 08/16/22 (Colace) hydrocodone 5 mg-acetaminophen 325 1 tab PO Q6H PRN pain (scale score 08/16/22 mg tablet 7-10) #20 tabs ibuprofen 600 mg tablet 600 mg PO Q8H PRN pain (scale 08/16/22 score 4-6) #15 tabs apixaban 5 mg tablet (Eliquis) 5 mg PO BID 30 days #60 tabs 11/28/22 Allergies Allergy/AdvReac Type Severity Reaction Status Date / Time No Known Allergies Allergy Verified 12/30/24 14:42 Review of Systems Review of Systems Systems Reviewed: All systems reviewed, normal except as documented Constitutional Constitutional: Reports system reviewed and no additional complaints, except as documented, Denies fever(s) and Denies headache(s) Eyes Eyes: Reports system reviewed and no additional complaints, except as documented and Denies blurry vision ENT Ears, Nose, Mouth, and Throat: Reports system reviewed and no additional complaints, except as documented, Denies headache(s), Denies nasal congestion and Denies nasal discharge Cardiovascular Cardiovascular: Reports system reviewed and no additional complaints, except as documented, Reports chest pain and Denies dyspnea Respiratory Respiratory: Reports system reviewed and no additional complaints, except as documented, Denies chest congestion, Denies cough and Denies dyspnea Gastrointestinal Gastrointestinal: Reports system reviewed and no additional complaints, except as documented and Denies abdominal pain Integumentary/Breasts Skin/Breast: Reports system reviewed and no additional complaints, except as documented and Denies rash Neurologic Neurologic: Reports system reviewed and no additional complaints, except as documented, Reports as per HPI and Denies headache(s) Past Medical History Past Medical History NEUROLOGIC: Negative Neurological Disorders or Seizures CARDIAC: Positive Cardiac Disorders, Heart Murmur, Hypertension and Varicose Veins; Negative Congestive Heart Failure or Edema RESPIRATORY: Negative Chronic Obstructive Pulmonary Disease (COPD) GASTROINTESTINAL: Negative Gastrointestinal Disorders or Hepatitis GENITOURINARY: Positive Genitourinary Disorders and Benign Prostatic Hyperplasia; Negative Renal Disease MUSCULOSKELETAL: Negative Musculoskeletal Disorders ENT: Positive Cataracts and Glaucoma ENDOCRINE: Positive Endocrine Disorders and Hypothyroidism; Negative Diabetes Mellitus Type 1 or Diabetes Mellitus Type 2 HEMATOLOGIC: Negative Blood Disorders OTHER HISTORY: Positive Radiation Therapy, Chicken Pox, Measles and Mumps; Negative Autoimmune Disease, Blood Transfusions, Blood Transfusion Reaction, Anesthesia Reactions, Organ Transplant, MRSA or Vancomycin-Resistant Enterococci Family History FAMILY HISTORY: Negative Family Psychiatric Problems, Family Respiratory Disorders, Family Cardiac Disorders, Family Gastrointestinal Problems, Family Cancer, Family Surgery or Family Anesthesia Reaction Surgical History SURGICAL: Positive Vascular Surgery, Tonsillectomy, Throat Surgery and Abdominal Surgery; Negative Ear Surgery, Joint Replacement, Vasectomy or Organ Transplant Social History SMOKING STATUS: Never smoker SUBSTANCE USE: does not use ED Exam General Limitations: Present no limitations General appearance: Present alert and in no apparent distress Head Head exam: Present atraumatic, normocephalic and normal inspection Eye Eye exam: Present normal appearance, PERRL and EOMI; Absent conjunctival injection ENT ENT exam: Present normal exam, normal oropharynx and mucous membranes moist Neck Neck exam: Present normal inspection, full ROM and trachea midline Chest Chest inspection: Present normal inspection and symmetric chest wall rise Respiratory Respiratory exam: Present normal lung sounds bilaterally Cardiovascular Cardiovascular exam: Present regular rate, normal rhythm and normal heart sounds; Absent bradycardia, tachycardia or irregular rhythm Abdominal Exam Abdominal exam: Present soft and normal bowel sounds; Absent distention or tenderness Extremities Exam Extremities exam: Present normal inspection and full ROM Back Exam Back exam: Present normal inspection and full ROM Neurological Exam Neurological exam: Present alert, oriented X3 and CN II-XII intact Psychiatric Psychiatric exam: Present normal affect and normal mood Skin Skin exam: Present warm, dry, intact and normal color Course Quality Measures none Orders Category Date Time Status Casting Associate STAT Care 12/30/24 15:25 Completed EKG (ED ONLY) *Do not use* NOW Care 12/30/24 15:25 Completed Insert IV STAT Care 12/30/24 15:25 Completed EKG (ED Only) Stat Exams 12/30/24 15:25 Draft XR chest 1V portable Stat Exams 12/30/24 15:25 Completed B-Type Natriuretic Peptide Stat Lab 12/30/24 15:35 Completed CBC Stat Lab 12/30/24 15:35 Completed Comprehensive Metabolic Panel Stat Lab 12/30/24 15:35 Completed Lipase Stat Lab 12/30/24 15:35 Completed Magnesium Stat Lab 12/30/24 15:35 Completed Partial Thromboplastin Time Stat Lab 12/30/24 15:35 Completed Prothrombin Time with INR Stat Lab 12/30/24 15:35 Completed Troponin I Stat Lab 12/30/24 15:35 Completed Troponin I Stat Lab 12/30/24 19:15 Completed Vital Signs Vital signs: Vital Signs Temperature 98.5 F 12/30/24 15:19 Pulse Rate 74 12/30/24 15:19 Respiratory Rate 18 12/30/24 15:19 Blood Pressure 146/87 H 12/30/24 15:19 Pulse Oximetry (%) 99 12/30/24 15:19 Oxygen Delivery Method Room Air 12/30/24 15:19 O2 saturation 99% room air within normal limits Procedures -ED EKG Interpretation #1: Date of EK12/30/24 Time of EK:29 Rate: 70 Interpretation: Interpreted by me EKG Impression: Normal sinus rhythm, No acute ST-T changes, No ectopy, Bundle branch block, No ischemic changes, Normal QRS, Normal intervals and Normal axis MDM Patient data External records reviewed:: [facility] previous records Clinical information provided by:: patient Social determinants that could affect healthcare access:: none Patient has the following chronic illnesses:: See history How is presenting disease/condition affected by chronic disease/condition?: caused by Evaluation data The following diagnostics were reviewed and interpreted by me:: lab results, radiology exam(s) and EKG tracing(s) Lab and/or radiology exams considered but not ordered:: Lab, radiology, EKG obtained Interpretation Summary: Reviewed by me Medications Medications considered but not ordered:: No meds Medication administrations:: No meds Consultations Consultation(s) initiated? (list below): No Diagnosis Differential Diagnosis ED Complaint MDM: Atypical chest pain, chest pain Most likely diagnosis given after review of the tests above:: Heartburn Admission Indicated Admission indicated?: not indicated Explain why admission is indicated or not indicated:: No criteria Admission Request Was there a request for admission?: No Disposition Plan Disposition Plan: Discharge Discharge Attestation Discharge Attestation: The patient and all family members were given an opportunity to ask questions and understood the discharge instructions. Discharge instructions specifically effects, indications for sooner follow up or return to the emergency department, and the expected course of current diagnosis. Patient condition: Stable Medical Decision Making MDM Narrative MDM Narrative: 84-year-old male with history of acid reflux and heartburn presents to the emergency department today stating that yesterday he had an episode of heartburn reports that he felt that it was heartburn and went to his primary care doctor today they did an EKG which she reports is abnormal therefore they referred to the ER for further evaluation On exam patient well-appearing patient does not appear ill or toxic and in no acute distress Lab work as well as EKG and chest x-ray were obtained by my colleague I reviewed the patient's lab work and EKG EKG unremarkable at this time troponin negative x 2 chest x-ray per radiologist shows possible pneumonia patient reports no cough or fever I do not believe the patient has pneumonia At the time of discharge and during his entire stay reports no chest pain or shortness of breath Patient discharged home in no distress to follow-up with primary care doctor in the next 24 to 48 hours and for any worsening symptoms to return to the ER immediately Differential Diagnosis Differential Diagnosis: Atypical chest pain, chest pain Medical Records Medical records reviewed: Yes I reviewed the patient's medical records. Lab Data Lab results reviewed: Yes I reviewed the patient's lab results. 12/30/24 15:35 12/30/24 15:35 Labs: Lab Results 12/30/24 12/30/24 Range/Units 15:35 19:15 WBC 5.9 (3.8-10.6) Thou/mm3 RBC 4.85 (4.50-5.90) Miln/mm3 Hgb 14.6 (13.5-16.0) g/dL Hct 43.3 (41.0-53.0) % MCV 89 (80-100) fL MCH 30.1 (25.0-35.0) pg MCHC 33.7 (31.0-37.0) g/dl RDW Std Deviation 45.4 H (35.1-43.9) fL Plt Count 210 (140-440) Thou/mm3 Neut % (Auto) 64 (37-80) % Lymph % (Auto) 23 (10-50) % Pierce % (Auto) 11 (0-12) % Eos % (Auto) 2 (0-10) % Baso % (Auto) 0 (0-2.5) % Neut # (Auto) 3.8 (1.8-7.7) Thou/mm3 Lymph # (Auto) 1.4 (1.0-4.8) Thou/mm3 Pierce # (Auto) 0.6 (0.0-0.8) Thou/mm3 Eos # (Auto) 0.1 (0.0-0.5) Thou/mm3 Baso # (Auto) 0.0 (0.0-0.2) Thou/mm3 Immature Gran # (Auto) 0.02 H (0.00-0.00) Thou/mm3 Absolute Nucleated RBC 0.00 (0.00-0.00) Thou/mm3 Immature Gran % 0 (0-0) % Nucleated RBC % 0 (0) /100 WBC PT 11.9 (9.0-12.2) Seconds INR 1.1 (0.9-1.3) APTT 32.9 (22.0-36.0) Seconds Sodium 139 (136-145) mMol/L Potassium 4.1 (3.4-5.1) mMol/L Chloride 105 (98-107) mMol/L Carbon Dioxide 26.8 (20.0-31.0) mMol/L Anion Gap 7 (7-16) BUN 15 (9-23) mg/dL Creatinine 1.3 (0.6-1.3) mg/dL Estim Creat Clear Calc 39.5 L (>60) mL/min eGFR 55 L (60 - ) See Note BUN/Creatinine Ratio 12 (12-20) Ratio Glucose 94 (74-106) mg/dL Calculated Osmolality 278 (275-295) Calcium 8.7 (8.3-10.6) mg/dL Corrected Calcium 8.7 (8.5-10.1) mg/dL Magnesium 1.7 (1.6-2.6) mg/dL Total Bilirubin 0.5 (0.3-1.2) mg/dL AST 24 (0-34) U/L ALT 21 (10-49) U/L Alkaline Phosphatase 89 (46-116) U/L Troponin I < 0.020 < 0.020 (0.0-0.045) ng/mL B-Natriuretic Peptide 133 H (0-100) pg/mL Total Protein 7.0 (5.7-8.2) gm/dL Albumin 4.0 (3.4-4.8) gm/dL Globulin 3.0 (2.3-3.5) gm/dL Albumin/Globulin Ratio 1.3 (1.2-2.2) Lipase 32 (12-53) U/L Radiology Data Radiology results reviewed: Yes I reviewed the patient's radiology results. Discharge Plan Plan Patient Disposition: HOME (Self Care) Disposition Comment: Stable Prescriptions/Referrals Prescriptions/Med Rec: No Action tamsulosin 0.4 mg capsule 0.8 mg PO QHS timolol 0.5 % drops 1 drp Both eyes QDAY latanoprost 0.005 % drops 1 drp Both eyes QDAY lisinopril 10 mg Tablet 40 mg PO QDAY finasteride 5 mg Tablet 5 mg PO QDAY levothyroxine 112 mcg Tablet 112 mcg PO QDAY hydrocodone-acetaminophen 5-325 mg tablet 1 tab PO Q6H MDD 4 PRN (Reason: pain (scale score 7-10)) Qty: 20 0RF docusate sodium [Colace] 100 mg capsule 100 mg PO BID Qty: 40 0RF ibuprofen 600 mg tablet 600 mg PO Q8H PRN (Reason: pain (scale score 4-6)) Qty: 15 0RF Eliquis 5 mg tablet 5 mg PO BID 30 Days Qty: 60 1RF Referrals: Mat Dean MD [Primary Care Provider] - In 1 week Problem List Clinical Impression: Heartburn Patient/Caregiver Discharge Instructions Additional Instructions: Please follow up with your primary care doctor in the next 24-48hrs for any worsening symptoms return here immediately Print Language: Occitan Stand Alone Forms: Lashanda Award Info., Patient Portal Info Letter PA/MARKETING TECHNOLOGY SPECIALIST Supervising Physician PA/MARKETING TECHNOLOGY SPECIALIST Supervising Physician: Dr. mccray
== END 2024-12-30 20:11 | disposition home or self-care (01) ==
PROVIDERS: Nurse Practitioner Primary Care; Emergency Provider Family Medicine; PCP Family Medicine
DX: R12 Heartburn (principal); R94.31 Abnormal electrocardiogram [ECG] [EKG]; R07.9 Chest pain, unspecified
CPT/HCPCS: 36415; 71045; 80053; 83690; 83735; 83880; 84484; 85025; 85610; 85730; 93005; 99283

== ENCOUNTER 2025-02-18 18:41 | Emergency (ER) | payer OTHER, SELFPAY ==
--- NOTE | 2025-02-18 18:53 | PC.CC ---
ASWMilka responded to Code Blue and was informed by EMS that patient was brought from home. ASW informed security that if family arrives to please take them to the conference room. ASW let scrap charger Alicia know of the update that was provided to security.
--- NOTE | 2025-02-18 18:57 | PD.EDCPR ---
ED CPR RME/HPI General Chief Complaint: Cardiac Arrest/CPR Stated Complaint: CODE BLUE Source: EMS Arrival date/time: 02/18/25 18:41 Mode of arrival: EMS RME / HPI RME / HPI narrative: DR. FARRIS?S MAIN ED EVALUATION: 84-year-old male with history of HTN and heart murmur presenting to the emergency department via EMS with ongoing CPR is presenting for stated complaint of unwitnessed arrest and collapse approximately 1 hour ago. Per EMS, patient was last seen eating when daughter stepped out for about 30 minutes to smoke a cigarette and found unresponsive when she came back inside. EMS administered 5 rounds of Epinephrine PRODUCT SAFETY AND STANDARDS ENGINEER with last dose given at 1839 hours. Patient was in asystole the entire time. No other medical complaints expressed. - PMH:?Heart Murmur, Hypertension, Varicose Veins, Benign Prostatic Hyperplasia, Cataracts, Glaucoma, Hypothyroidism - PSH: Vascular Surgery, Tonsillectomy, Throat Surgery and Abdominal Surgery - Social history: Denies - Current medications: Reviewed PCP is unknown MD complaint: found unresponsive Onset (ago): minute(s) (30) Timing confirmed by: family member (Daughter) Place: home AED applied by bystander/cooker helper: No Shock advised: No Downtime before ACLS arrival (mins): 30 Initial findings in the field: unresponsive and other rhythm (asystole) Associated injuries: No Known history of: other (Hypertension, Heart murmur) Related Data Home Medications ?Medication ?Instructions ?Recorded ?Confirmed finasteride 5 mg tablet 5 mg PO QDAY 07/06/19 12/20/24 levothyroxine 112 mcg tablet 112 mcg PO QDAY 07/06/19 12/20/24 lisinopril 10 mg tablet 40 mg PO QDAY 07/06/19 12/20/24 latanoprost 0.005 % eye drops 1 drp Both eyes QDAY 07/17/20 12/20/24 timolol 0.5 % eye drops 1 drp Both eyes QDAY 07/17/20 12/20/24 tamsulosin 0.4 mg capsule 0.8 mg PO QHS 06/21/24 12/20/24 Previous Rx's ?Medication ?Instructions ?Recorded docusate sodium 100 mg capsule 100 mg PO BID #40 caps 08/16/22 (Colace) hydrocodone 5 mg-acetaminophen 325 1 tab PO Q6H PRN pain (scale score 08/16/ mg tablet 7-10) #20 tabs ibuprofen 600 mg tablet 600 mg PO Q8H PRN pain (scale 08/16/22 score 4-6) #15 tabs apixaban 5 mg tablet (Eliquis) 5 mg PO BID 30 days #60 tabs 11/28/22 Allergies Allergy/AdvReac Type Severity Reaction Status Date / Time No Known Allergies Allergy Verified 12/30/24 14:42 Review of Systems Review of Systems ROS Unobtainable: other (Patient unresponsive) Past Medical History Past Medical History CARDIAC: Positive Cardiac Disorders, Heart Murmur, Hypertension and Varicose Veins GENITOURINARY: Positive Genitourinary Disorders and Benign Prostatic Hyperplasia ENT: Positive Cataracts and Glaucoma ENDOCRINE: Positive Endocrine Disorders and Hypothyroidism OTHER HISTORY: Positive Radiation Therapy, Chicken Pox, Measles and Mumps Surgical History SURGICAL: Positive Vascular Surgery, Tonsillectomy, Throat Surgery and Abdominal Surgery ED Exam Narrative Physical exam: GENERAL APPEARANCE: Unresponsive, CPR in progress HEENT: Normocephalic, atraumatic; pupils 9 mm fixed, lips cyanotic NECK: Supple LUNGS: No spontaneous respirations, ventilated via BVM, breath sounds clear bilaterally with ventilation HEART: No pulse, no cardiac sounds, good pulse with CPR ABDOMEN: Mildly distended; soft EXTREMITIES: atraumatic; cyanotic NEUROLOGIC: Obtunded, unresponsive, no response to painful stimuli SKIN: Cool, cyanotic Course Course Course Narrative: See nurses notes for multiple rounds of ACLS medications. Intubation done by the resident in my presence. Quality Measures none Orders Category Date Time Status Intubation NOW Care 02/18/25 18:53 Completed Procedures -ED Intubation Time out performed: Yes sedative: none Laryngoscope: other (Glidescope) ET Tube Size: 7.5 ET Tube Uncuffed: No Tube Secured Depth (cm): 23 Tube Secured Location: lips Tube Placement Confirmation: visualized tube passing through cords, equal breath sounds bilaterally, no breath sounds over epigastrium and confirmation by capnometry Patient Tolerated Procedure: well and no complications Intubation Complications: none Additional Comments: Tube successfully placed at 1844 hours by resident in my presence. Refer to resident's note for full procedure details. Cardiac Arrest / CPR MDM Narrative MDM Narrative:: Scribe Attestation: 02/18/2025 - I, Brianna Valentine, am scribing for and in the presence of Dr. Farris. Provider Notation: Although this document has been carefully reviewed, there may still be some phonetic and other typographical errors.? These errors are purely grammatical due to imperfections in the software program and should not be construed in any way to compromise the substance of the patient's medical care during this visit. 84-year-old male with history of HTN and heart murmur presenting to the emergency department via EMS with ongoing CPR is presenting for stated complaint of unwitnessed arrest and collapse approximately 1 hour ago. Per EMS, patient was last seen eating when daughter stepped out. Patient down for approximately 30 minutes prior to being found and contacting EMS. ROS: arrest and collapse Differential diagnoses include acute massive pulmonary embolism, acute respiratory failure, acute myocardial infarction, cardiac arrest and sudden cardiac TOD: 1851 hours. Patient data External records reviewed:: [facility] previous records (Reviewed prior ED records from 12/30/24. Patient was kast seen for Heartburn.) and EMS form Clinical information provided by:: EMS Social determinants that could affect healthcare access:: none Patient has the following chronic illnesses:: Heart Murmur, Hypertension, Varicose Veins, Benign Prostatic Hyperplasia, Cataracts, Glaucoma, Hypothyroidism How is presenting disease/condition affected by chronic disease/condition?: exacerbated by Evaluation data The following diagnostics were reviewed and interpreted by me:: other (specify) (N/A) Lab and/or radiology exams considered but not ordered:: None Interpretation Summary: N/A Medications / Prescriptions Medications or Prescriptions considered but not ordered:: None Medication administrations:: See above if any Consultations Consultation(s) initiated? (list below): No Diagnosis Cardiac arrest differential diagnosis: acute massive pulmonary embolism, acute respiratory failure, acute myocardial infarction, cardiac arrest and sudden cardiac Most likely diagnosis given after review of the tests above:: Cardiac arrest, Respiratory arrest Admission Indicated Admission indicated?: not indicated Explain why admission is indicated or not indicated:: Patient Admission Request Was there a request for admission?: No Disposition Plan Disposition Plan: other (specify) Discharge Plan Plan Patient Disposition: Prescriptions/Referrals Referrals: No Primary/Family,Physician [Primary Care Provider] - In 1 week Problem List Clinical Impression: Cardiac arrest, Respiratory arrest Patient/Caregiver Discharge Instructions Print Language: Frisian ED Procedures Intubation Time out performed: Yes sedative: none Laryngoscope: other (Glidescope) ET Tube Size: 7.5 ET Tube Uncuffed: No Tube Secured Depth (cm): 23 Tube Secured Location: lips Tube Placement Confirmation: visualized tube passing through cords, equal breath sounds bilaterally, no breath sounds over epigastrium and confirmation by capnometry Patient Tolerated Procedure: well and no complications Intubation Complications: none Additional Comments: Intubation performed with the presence and assistance of my attending, Dr. Lira. Dee Michael, PGY-2,
== END 2025-02-18 22:19 | disposition expired ==
PROVIDERS: Emergency Provider Emergency Medicine
DX: I46.9 Cardiac arrest, cause unspecified (principal); I10 Essential (primary) hypertension
CPT/HCPCS: 31500; 92950; 99285; J0171